=== PATIENT | male | born 2000 | race Two or more races ===

== ENCOUNTER 2018-03-31 02:57 | Emergency (ER) | payer OTHER ==
--- NOTE | 2018-03-31 03:33 | ER Document Report ---
ED GI/ - General Chief Complaint: Testicular Pain Stated Complaint: TESTICLE PAIN Time Seen by Provider: 03/31/18 03:07 Notes: Patient is a 17-year-old male that comes to the emergency department for chief complaint of bilateral testicular pain for the past 2 days. He states that he googled it and he believed it was "blue balls", he states he then attempted to ejaculate but when he did he saw some yellowish discharge release. He denies bloody discharge. He denies injury, swelling, painful urination, or fever. He has not been sexually active for 5 months he reports. He denies any daily medications, surgeries, or medical history. He denies any other complaints. TRAVEL OUTSIDE OF THE [place] IN LAST 30 DAYS: No - Related Data Allergies/Adverse Reactions: No Known Allergies Allergy (Unverified 03/31/18 03:52) Past Medical History - General Information source: Patient - Social History Smoking Status: Never Smoker Frequency of alcohol use: Social Drug Abuse: None Lives with: Alone Family History: Reviewed & Not Pertinent - Medical History Medical History: Negative Surgical Hx: Negative - Immunizations Immunizations up to date: Yes Hx Diphtheria, Pertussis, Tetanus Vaccination: Yes Review of Systems - Review of Systems Constitutional: No symptoms reported EENT: No symptoms reported Cardiovascular: No symptoms reported Respiratory: No symptoms reported Gastrointestinal: No symptoms reported Genitourinary: See HPI Male Genitourinary: See HPI Musculoskeletal: No symptoms reported Skin: No symptoms reported Hematologic/Lymphatic: No symptoms reported Neurological/Psychological: No symptoms reported Physical Exam - Vital signs Vitals: Temp Pulse Resp BP Pulse Ox 98.2 F 73 14 126/77 H 99 03/31/18 02:58 03/31/18 02:58 03/31/18 02:58 03/31/18 02:58 03/31/18 02:58 - Notes Notes: GENERAL: Alert, interacts well. No acute distress. HEAD: Normocephalic, atraumatic. EYES: Pupils equal, round, and reactive to light. Extraocular movements intact. ENT: Oral mucosa moist, tongue midline. Oropharynx unremarkable. Airway patent. Nares patent, no nasal septal hematoma, TM's intact. NECK: Full range of motion. Supple. Trachea midline. LUNGS: Clear to auscultation bilaterally, no wheezes, rales, or rhonchi. No respiratory distress. HEART: Regular rate and rhythm. No murmur ABDOMEN: Soft, non-tender. Non-distended. Bowel sounds present in all 4 quadrants. GENITOURINARY: Normal genital exam, no rashes, no discharge, uncircumcised. No paraphimosis. Tenderness over the front of the testicles, no tenderness over the epididymis, no swelling, normal cremaster reflex, no evidence of hernia, no evidence of other abnormality. Zhane MARSHALL present during exam. EXTREMITIES: Moves all 4 extremities spontaneously. No edema, normal radial and dorsalis pedis pulses bilaterally. No cyanosis. BACK: no cervical, thoracic, lumbar midline tenderness. No saddle anesthesia, normal distal neurovascular exam. NEUROLOGICAL: Alert and oriented x3. Normal speech. [cranial nerves II through XII grossly intact]. PSYCH: Normal affect, normal mood. SKIN: Warm, dry, normal turgor. No rashes or lesions noted. Course - Re-evaluation Re-evalutation: Minimal bilateral mid testicular tenderness without swelling, erythema, notable pain, rash, or other abnormality. Patient thinks he saw discharge but the urine does not appear infected, gonorrhea and Chlamydia were both negative, patient has not been sexually active for 5 months reportedly. No rash or sign of STD otherwise. No dysuria. Reassurance given. Ultrasound was performed, shows small bilateral hydroceles and tiny epididymal cysts. No concerning N normality. I discussed recommendations for this and the details on this with patient, provided him with a copy of his ultrasound, provided him with urology referral, expectations, and return precautions. Patient states understanding and agreement. - Vital Signs Vital signs: Temp Pulse Resp BP Pulse Ox 98.3 F 69 18 132/63 H 98 03/31/18 04:40 03/31/18 04:40 03/31/18 04:40 03/31/18 04:40 03/31/18 04:40 - Laboratory Laboratory results interpreted by me: 03/31/18 03:18 Urine Urobilinogen 2.0 H Discharge - Discharge Clinical Impression: Testicular pain Condition: Stable Disposition: HOME, SELF-CARE Additional Instructions: Your workup does not show any infection or any concerning abnormality. That you have very small fluid collections in the area near the testicles. These should resolve with time. I recommend that you wear tight supportive underwear, take the anti-inflammatory as prescribed, and symptoms should resolve. If symptoms continue follow-up with a urologist for additional evaluation and management (see optional locations below). Return if you worsen including severe pain, swelling, redness, or any other concerning or worsening symptoms. [facility] [place] [id number] [facility] [address] [place], [place] [id number] Deja Jacobs MD Doctor in [place], [place] Address: [facility] [address], [place] [address] Prescriptions: Naproxen 500 mg PO BID PRN #20 tablet PRN Reason:
[2018-03-31 03:49] LABS: APPEARANCE,URINE SLIGHTLY-CLOUDY; BILIRUBIN,URINE NEGATIVE (NEGATIVE); COLOR,URINE YELLOW; GLUCOSE, URINE NEGATIVE (NEGATIVE); KETONES,URINE NEGATIVE (NEGATIVE); LEUKOCYTE ESTERASE,URINE NEGATIVE (NEGATIVE); NITRITE,URINE NEGATIVE (NEGATIVE); PROTEIN,URINE NEGATIVE (NEGATIVE); URINE SPECIFIC GRAVITY 1.027
--- NOTE | 2018-03-31 04:26 | RADIOLOGY REPORT (SQ) ---
EXAM DESCRIPTION: US SCROTUM COMPLETED DATE/TME: 03/31/2018 03:28 CLINICAL HISTORY: 17 years, Male, bilateral testicular pain COMPARISON: None. TECHNIQUE: Transverse and longitudinal sonographic images of the testes LIMITATIONS: None. FINDINGS: The right testicle measures 4.2 x 3.1 x 1.6 cm, the left 4.5 x 3.1 x 2.0 cm. Negative for intratesticular mass. Doppler and spectral analysis with color flow was utilized. Arterial and venous flow bilaterally. Tiny bilateral epididymal head cysts. Epididymides are otherwise unremarkable. Tiny bilateral hydroceles.. IMPRESSION: Tiny bilateral hydroceles and epididymal head cysts. Remainder unremarkable copyright 2010 [employer]- All Rights Reserved
[2018-03-31 04:47] VITALS: BP 132/63
[2018-03-31 05:31] LABS: CHLAM PCR NOT DETECTED (NOT DETECT); GON PCR NOT DETECTED (NOT DETECT)
== END 2018-03-31 04:47 | disposition home or self-care (01) ==
LOC: ER 02:57
DX: N50.812 Left testicular pain (principal); N50.811 Right testicular pain; N50.3 Cyst of epididymis; N43.3 Hydrocele, unspecified
CPT/HCPCS: 76870; 81001; 87491; 87591; 93976; 99284